=== PATIENT | female | born 1985 | race Caucasian/White ===

== ENCOUNTER 2017-01-21 22:38 | Emergency (ER) | payer SELFPAY ==
[~2017-01-21] VITALS: Ht 170.2 cm; Wt 50.0 kg
[~2017-01-21 22:38] MED LIST: PROP80TA PO
[2017-01-21] MEDS ORDERED: morphine SULFATE 10 MG/ML, 1ML ONE (23:45)
[2017-01-21] MEDS ORDERED: ONDANSETRON 2MG/ML, 2ML ONE (23:45)
[2017-01-21] MEDS ORDERED: LORazepam 2 MG/ML, 1ML ONE (23:46)
[2017-01-21 23:47] LABS: HEMATOCRIT 42.6 % (34.6-47.8); HEMOGLOBIN 13.9 g/dL (11.7-16.4); WHITE BLOOD COUNT 9.5 x10^3/uL (3.4-10)
[2017-01-21 23:59] LABS: ASPARTATE AMINO TRANSFERASE 12 U/L (15-37); BLOOD UREA NITROGEN 17 mg/dL (7-18)
[2017-01-22] MEDS ORDERED: LORazepam 2 MG/ML, 1ML IVPush ONE
[2017-01-22] MEDS ORDERED: SODIUM CHLORIDE 0.9% 1,000ML IVBOLUS ONE
[2017-01-22] MEDS ORDERED: morphine SULFATE 10 MG/ML, 1ML IVPush PRN
[2017-01-22] MEDS ORDERED: ONDANSETRON 2MG/ML, 2ML IVPush ONE
[2017-01-22 00:05] LABS: IS PT STATUS REG ER OR PRE ER? YES
[2017-01-22] MEDS ORDERED: OMNIPAQUE 350 MG/ML, 100ML BOTTLE ONE (00:35)
[2017-01-22 01:49] VITALS: BP 105/50
== END 2017-01-22 02:19 | disposition home or self-care (01) ==
LOC: ED 01-22 01:16
DX: N30.90 Cystitis, unspecified without hematuria (principal); G43.909 Migraine, unspecified, not intractable, without status migrainosus; F17.200 Nicotine dependence, unspecified, uncomplicated; F43.10 Post-traumatic stress disorder, unspecified; Z90.49 Acquired absence of other specified parts of digestive tract
CPT/HCPCS: 36415; 71010; 71275; 74160; 80053; 81001; 83690; 84484; 84702; 85025; 87086; 93005; 96361; 96374; 96375; 99285; J2060; J2270; J2405; J7030; Q9967

== ENCOUNTER 2019-11-08 16:46 | Emergency (ER) | payer MEDICAID ==
[~2019-11-08] VITALS: Ht 170.2 cm; Wt 59.2 kg
[2019-11-08] MEDS ORDERED: EPINEPHRINE 1 MG/ML, 1ML ONE (16:52)
[2019-11-08] MEDS ORDERED: methylPREDNISolone SOD SUCC 125 MG/2 ML ONE (17:09)
[2019-11-08] MEDS ORDERED: FAMOTIDINE 20 MG/2 ML ONE (17:09)
[2019-11-08] MEDS ORDERED: DIPHENHYDRAMINE 50 MG/ML, 1ML ONE (17:09)
--- NOTE | 2019-11-08 17:10 | NUR ---
PT LAYING ON GURNEY WITH EYES CLOSED, DROWSY AFTER MEDS & DECR IN ANXIETY, RESPONDS APPROP TO STAFF, COMFORT MEASURES PROVIDED, CALL LIGHT WITHIN REACH, [facility].
[2019-11-08] MEDS ORDERED: LORazepam 2 MG/ML, 1ML ONE (17:14)
[2019-11-08] MEDS ORDERED: DIPHENHYDRAMINE 50 MG/ML, 1ML IVPush ONE (17:30)
[2019-11-08] MEDS ORDERED: FAMOTIDINE 20 MG/2 ML IVPush ONE (17:30)
[2019-11-08] MEDS ORDERED: SODIUM CHLORIDE FLUSH 10ML SYR IVF ONE (17:30)
[2019-11-08] MEDS ORDERED: methylPREDNISolone SOD SUCC 125 MG/2 ML IVPush ONE (17:30)
[2019-11-08] MEDS ORDERED: EPINEPHRINE 1 MG/ML, 1ML SQ ONE (17:30)
[2019-11-08] MEDS ORDERED: LORazepam 2 MG/ML, 1ML IVPush ONE (17:30)
--- NOTE | 2019-11-08 18:02 | NUR ---
PT LAYING ON GURNEY MOSTLY SLEEPING, NAD WITH EQUAL CHEST RISE/FALL, NO NEEDS AT THIS TIME, CALL LIGHT WITHIN REACH, [facility].
--- NOTE | 2019-11-08 18:31 | NUR ---
ATTEMPTED TO WAKE PT FOR DC, PT VERY DIFFICULT TO AROUSE, DR POPE AWARE.
--- NOTE | 2019-11-08 18:56 | NUR ---
REPORT GIVEN TO FORTINO
--- NOTE | 2019-11-08 19:11 | NUR ---
Pt sound asleep and unable to be aroused. Is breathing unlabored and vitals are normal but pt still suffering from risidual ativan and benadryl iv.
--- NOTE | 2019-11-08 21:22 | NUR ---
Attempted to arouse patient, patient not moving, did open eyes and respond to some of RNs questions. Pt still appears sedated from medications. Pt reports she does not have a ride home and at this time is unsafe to be sent home.
--- NOTE | 2019-11-08 21:50 | NUR ---
blowing weasand made aware of patients condition and needing further monitoring.
[2019-11-08 22:34] VITALS: BP 103/71
--- NOTE | 2019-11-09 00:01 | NUR ---
Report received from ADEOLA Boateng. This RN to assume care.
--- NOTE | 2019-11-09 00:19 | NUR ---
Patient still extremely drowsy. Unable to walk at this time. Awake to verbal stimuli. Sister is listed as emergency contact; attempted to call but number was OOS. Awaiting patient to be more oriented to get her home safe.
--- NOTE | 2019-11-09 02:05 | NUR ---
Patient arousable to verbal stimuli. She is able to tell us her address and walk down the [address] with a steady gait. Taxi voucher given. Discharge instructions given. All questions and concerns addressed. Belongings with patient.
== END 2019-11-09 02:08 | disposition home or self-care (01) ==
LOC: ED 23:00
DX: J98.01 Acute bronchospasm (principal); T63.441A Toxic effect of venom of bees, accidental (unintentional), initial encounter; R00.0 Tachycardia, unspecified; F17.200 Nicotine dependence, unspecified, uncomplicated; Z90.49 Acquired absence of other specified parts of digestive tract
CPT/HCPCS: 96372; 96374; 96375; 99285; J0171; J1200; J2060; J2930; J3490